=== PATIENT | male | born 1940 | race Caucasian/White ===

== ENCOUNTER → 2021-11-15 | Outpatient (CLI) | payer MEDICARE, BC ==
[2021-11-15 14:26] LABS: BASOPHILS # (AUTO) 0.1 (0.0-0.1); BASOPHILS % 0.5 % (0.0-1.0); EOSINOPHILS # (AUTO) 0.1 (0.0-0.4); EOSINOPHILS % 1.3 % (0.0-6.0); HEMATOCRIT 39.2 % (38.2-49.6); LYMPHOCYTES # (AUTO) 1.9 (1.0-3.2); LYMPHOCYTES % 17.9 % (18.0-39.1); MEAN CORPUSCULAR HEMOGLOBIN 27.8 pg (28-32); MEAN CORPUSCULAR HGB CONC 30.6 g/dL (31-35); MONOCYTES % 9.4 % (4.4-11.3); NEUTROPHILS # (AUTO) 7.5 (2.1-6.9); NEUTROPHILS % 70.5 % (38.7-80.0); PLATELET COUNT 329 x10e3/uL (140-360); RED BLOOD COUNT 4.31 x10e6/uL (4.3-5.7); RED CELL DISTRIBUTION WIDTH 13.3 % (11.7-14.4)
[2021-11-15 14:43] LABS: ALBUMIN 3.8 g/dL (3.5-5.0); ALBUMIN/GLOBULIN RATIO 1.1 (0.8-2.0); ANION GAP 13.4 mmol/L (8-16); CALCIUM 9.5 mg/dL (8.4-10.2); CREATININE, SERUM 1.61 mg/dL (0.72-1.25); POTASSIUM 4.4 mmol/L (3.5-5.1)
[2021-11-15 15:06] LABS: ERYTHROCYTE SEDIMENTATION RATE 16 mm/hr (0-13)
== END ==
LOC: LAB 13:33
PROVIDERS: ATTEND Podiatrist Foot & Ankle Surgery
DX: E11.621 Type 2 diabetes mellitus with foot ulcer (principal); L97.411 Non-pressure chronic ulcer of right heel and midfoot limited to breakdown of skin
CPT/HCPCS: 36415; 80053; 83036; 84134; 85025; 85651; 86141

== ENCOUNTER 2021-12-12 14:18 | Outpatient (RCR) | payer MEDICARE, BC ==
[~2021-12-12 14:18] MED LIST: LIDOCAINE VISC 2% SOLN 15 ML UDC ONE; MUPIROCIN 2% OINT 22 GM TUBE ONE; TRYPSIN/BALSAM PERU/CASTOR OIL ONE
== END 2021-12-14 ==
LOC: WCC 14:18
PROVIDERS: ATTEND Podiatrist Foot & Ankle Surgery
DX: E11.621 Type 2 diabetes mellitus with foot ulcer (principal); L97.411 Non-pressure chronic ulcer of right heel and midfoot limited to breakdown of skin; G90.09 Other idiopathic peripheral autonomic neuropathy; I10 Essential (primary) hypertension; D89.9 Disorder involving the immune mechanism, unspecified
CPT/HCPCS: 36415; 82948

== ENCOUNTER 2022-01-12 15:50 | Outpatient (RCR) | payer MEDICARE, BC ==
[~2022-01-12 15:50] MED LIST changes: +LIDOCAINE/PRILOCAINE 2.5-2.5% KIT ONE; +MINERAL OIL/PETROLAT/GLYCERI 6OZ BTL ONE; -TRYPSIN/BALSAM PERU/CASTOR OIL ONE
== END 2022-01-13 ==
LOC: WCC 15:50
PROVIDERS: ATTEND Podiatrist Foot & Ankle Surgery
DX: E11.621 Type 2 diabetes mellitus with foot ulcer (principal); L97.411 Non-pressure chronic ulcer of right heel and midfoot limited to breakdown of skin; R60.0 Localized edema; I10 Essential (primary) hypertension; G90.09 Other idiopathic peripheral autonomic neuropathy; D89.9 Disorder involving the immune mechanism, unspecified
CPT/HCPCS: 15275 ×3; 29581; 99213 ×7; Q4160 ×3

== ENCOUNTER 2022-02-09 14:20 | Outpatient (RCR) | payer MEDICARE, BC ==
[~2022-02-09 14:20] MED LIST changes: -LIDOCAINE/PRILOCAINE 2.5-2.5% KIT ONE; -MUPIROCIN 2% OINT 22 GM TUBE ONE; +TRIAMCINOLONE ACET 0.1% CREAM 15 GM TUBE ONE
== END 2022-02-13 ==
LOC: WCC 14:20
PROVIDERS: ATTEND Podiatrist Foot & Ankle Surgery
DX: E11.621 Type 2 diabetes mellitus with foot ulcer (principal); L97.411 Non-pressure chronic ulcer of right heel and midfoot limited to breakdown of skin; R60.0 Localized edema; I10 Essential (primary) hypertension; D89.9 Disorder involving the immune mechanism, unspecified; G90.09 Other idiopathic peripheral autonomic neuropathy
CPT/HCPCS: 15275 ×4; 99213 ×7; Q4160 ×4

== ENCOUNTER 2022-03-13 11:06 | Outpatient (RCR) | payer MEDICARE, BC ==
[~2022-03-13 11:06] MED LIST changes: -MINERAL OIL/PETROLAT/GLYCERI 6OZ BTL ONE; -TRIAMCINOLONE ACET 0.1% CREAM 15 GM TUBE ONE; +TRYPSIN/BALSAM PERU/CASTOR OIL ONE
== END 2022-03-15 ==
LOC: WCC 11:06
PROVIDERS: ATTEND Family Medicine Adult Medicine
DX: E11.621 Type 2 diabetes mellitus with foot ulcer (principal); L97.411 Non-pressure chronic ulcer of right heel and midfoot limited to breakdown of skin; R60.0 Localized edema; G90.09 Other idiopathic peripheral autonomic neuropathy; I10 Essential (primary) hypertension; D89.9 Disorder involving the immune mechanism, unspecified
CPT/HCPCS: 15275 ×3; 99212; 99213 ×6; Q4160 ×3

== ENCOUNTER 2022-04-03 11:29 | Outpatient (RCR) | payer MEDICARE, BC ==
[2022-04-03] MEDS ORDERED: MINERAL OIL/PETROLAT/GLYCERI 2OZ CRM ONE (16:39)
== END 2022-04-15 ==
LOC: WCC 11:29
PROVIDERS: ATTEND Podiatrist Foot & Ankle Surgery
DX: E11.621 Type 2 diabetes mellitus with foot ulcer (principal); L97.411 Non-pressure chronic ulcer of right heel and midfoot limited to breakdown of skin; G90.09 Other idiopathic peripheral autonomic neuropathy; I10 Essential (primary) hypertension; D89.9 Disorder involving the immune mechanism, unspecified